=== PATIENT | male | born 1965 | race Caucasian/White ===

== ENCOUNTER 2017-10-20 10:22 | Emergency (ER) | payer OTHER ==
[~2017-10-20 10:22] MED LIST: PSEU120T89 PO
--- NOTE | 2017-10-20 10:37 | ER Report ---
History and Physical Time Seen By MD: 10:30 Hx. of Stated Complaint: pt reports swelling on R side of neck for 1 week HPI/ROS CHIEF COMPLAINT: Right neck swelling concerning for abscess HISTORY OF PRESENT ILLNESS: Patient is a 52-year-old male here with complaints of right neck swelling for the past several days which is superficial and painful to the touch.. She has been afebrile however he does note worsening pain with range of motion of the neck locally at the superficial infection. Patient denies history of diabetes or autoimmune disorder. Patient denies headache, blurred vision, dysphasia, identification, difficulty breathing, chest pain or shortness breath. REVIEW OF SYSTEMS: Constitutional: No fever, no chills. Eyes: No discharge. ENT: + right neck swelling with induration Cardiovascular: No chest pain, no palpitations. Respiratory: No cough, no shortness of breath. Gastrointestinal: No abdominal pain, no vomiting. Genitourinary: No hematuria. Musculoskeletal: No back pain. Skin: + mild erythema and rash of the right neck. Neurological: No headache. Allergies: Coded Allergies: morphine (Verified Allergy, Mild, VOMITING, 10/20/17) Uncoded Allergies: ANTIBIOTIC (Allergy, Unknown, UNKNOW WHICH ONES, 10/20/17) Home Meds Active Scripts Clindamycin Hcl (CLINDAMYCIN HCL) 300 Mg Capsule, 450 MG PO Q6H for 7 Days, #40 CAPSULE Prov:LUL DOCKERY DO 10/20/17 Discontinued Reported Medications Pseudoephedrine Hcl (Sinus & Allergy) 120 Mg Tablet.sa, 120 MG PO 01/23/12 Hx Smoking: No Hx Substance Use Disorder: No Constitutional Vital Sign - Last 24 Hours 10/20/17 10/20/17 10/20/17 10:22 10:59 11:14 Temp 98.0 Pulse 88 79 71 Resp 16 16 16 B/P (MAP) 157/84 159/103 (121) 151/81 (104) Pulse Ox 98 91 97 O2 Delivery Room Air Room Air Room Air Physical Exam General Appearance: The patient is alert, has no immediate need for airway protection and no signs of toxicity. Eyes: Pupils equal and round no pallor or injection. ENT, Mouth: Mucous membranes are moist. Respiratory: There are no retractions, lungs are clear to auscultation. Cardiovascular: Regular rate and rhythm. Gastrointestinal: Abdomen is soft and non tender, no masses, bowel sounds normal. Neurological: No focal deficits Skin:+ rash of the right neck, + induration Musculoskeletal: Neck is supple non tender. Extremities are nontender, nonswollen and have full range of motion. DIFFERENTIAL DIAGNOSIS: After history and physical exam differential diagnosis was considered for abscess, cellulitis, hematoma, contusion Medical Decision Making ED Course/Re-evaluation ED Course Patient is a 52-year-old male here with complaints of right neck swelling consistent with a small loculated abscess as confirmed on bedside ultrasound. An I&D was performed at bedside initially utilizing a needle for aspiration however due to concern for loculation, an 11 blade and a hemostat were utilized without significant alleviation or drainage. Patient was placed on clindamycin for outpatient therapy and advised to follow up with PCP. Patient remained stable at discharge. Procedure Irrigation and drainage: A 3 cm diameter abscess was identified on the patient' s right lateral neck at the hairline. I went the site with alcohol prep pad, and still 2.5 mL of lidocaine 1% without epinephrine for local anesthesia. I attempted to needle aspirate infection however the material seemed loculated.An 11 blade was used to open the pocket and a hemostat was used to gently open the area however only blood was excreted. Patient was placed on a course of clindamycin due to concern for infection. I decided not to probe/cut further due to significant vasculature in the surrounding area as identified on bedside ultrasound. Decision to Disposition Date: October 20, 2017 Decision to Disposition Time: 11:08 Depart Departure Latest Vital Signs Vital Signs Date Time Temp Pulse Resp B/P (MAP) Pulse Ox O2 Delivery O2 Flow Rate FiO2 10/20/17 11:14 71 16 151/81 (104) 97 Room Air 10/20/17 10:22 98.0 Impression: Primary Impression: Abscess Condition: Improved Disposition: HOME OR SELF-CARE New Scripts Clindamycin Hcl (CLINDAMYCIN HCL) 300 Mg Capsule 450 MG PO Q6H for 7 Days, #40 CAPSULE Prov: LUL DOCKERY DO 10/20/17 Patient Instructions: Abscess (ED), Clindamycin (By mouth) Additional Instructions: Please take 450 mg Clindamycin (1.5 tablets if 300 mg tabs) for abscess infection. Please return promptly if you develop fevers, difficulty swallowing, difficulty breathing, difficulty moving your neck, worsening pain or redness. Please return to the emergency department or follow-up with a family doctor in the next 3 days for repeat evaluation LUL DOCKERY DO October 20, 2017 10:37
[2017-10-20] MEDS ORDERED: CLIN300C99 PO (11:07)
[2017-10-20 11:14] VITALS: BP 151/81
== END 2017-10-20 11:15 | disposition home or self-care (01) ==
LOC: ER 10:41
DX: L02.11 Cutaneous abscess of neck (principal)
CPT/HCPCS: 99282